=== PATIENT | female | born 1975 | race Caucasian/White ===

== ENCOUNTER 2017-11-04 20:40 | Emergency (ER) | payer BC ==
[2017-11-04] MEDS ORDERED: Acetaminophen/Codeine 30-300mg Tablet ONE (21:20)
--- NOTE | 2017-11-04 21:21 | RAD ---
RIGHT SHOULDER THREE VIEWS: 11/04/17 HISTORY: Right shoulder pain. FINDINGS: Acromioclavicular and glenohumeral alignment are maintained. No acute fracture or dislocation. IMPRESSION: No acute osseous abnormalities are demonstrated. POS: [facility]
== END 2017-11-04 21:40 | disposition home or self-care (01) ==
LOC: SCSER 20:40
DX: S43.421A Sprain of right rotator cuff capsule, initial encounter (principal); E11.9 Type 2 diabetes mellitus without complications; Z79.84 Long term (current) use of oral hypoglycemic drugs; Z79.899 Other long term (current) drug therapy; X58.XXXA Exposure to other specified factors, initial encounter

== ENCOUNTER 2018-03-25 19:02 | Emergency (ER) | payer BC | END 2018-03-25 19:21 | disposition home or self-care (01) | LOC: SCSER 19:02 | DX: T22.111A Burn of first degree of right forearm, initial encounter (principal); E11.9 Type 2 diabetes mellitus without complications; Z79.84 Long term (current) use of oral hypoglycemic drugs; X12.XXXA Contact with other hot fluids, initial encounter | CPT/HCPCS: 99283 ==

== ENCOUNTER 2018-11-03 19:52 | Emergency (ER) | payer BC ==
[~2018-11-03 19:52] MED LIST: Iopamidol 300 61% 100 ML VIAL FS ONE
[2018-11-03 20:32] LABS: #Eosinphils 0.1 thou/uL (0.0-0.7); #Lymphocytes 2.1 thou/uL (1.20-3.40); #Monocytes 0.4 thou/uL (0.11-0.59); %Basophils 0.5 % (0.0-1.0); %Eosinophils 1.6 % (0.0-10.0); %Lymphocytes 27.4 % (21.0-51.0); %Monocytes 4.6 % (0.0-10.0); %Neutrophils 65.9 % (42.0-75.0); Hemoglobin 13.3 g/dL (12.0-16.0); Mean Corpuscular HGB CONC 32.4 g/dL (32.0-36.0); Mean Corpuscular Hemoglobin 26.8 pg (27.0-31.0); Mean Corpuscular Volume 82.7 fL (78.0-98.0); Mean Platelet Volume 8.1 fL (7.4-10.4); Platelet Count 288 thou/uL (130-400); Red Blood Cell (RBC) Count 4.97 mill/uL (4.20-5.40); White Blood Cell (WBC) Count 7.6 thou/uL (4.8-10.8)
[2018-11-03 20:38] LABS: BHCG - Serum Negative (NEGATIVE); Pregs Control Background? CLEAR/WHITE (CLR/WHITE); Pregs Control Bar Appear? YES (CONTROL BAR)
[2018-11-03 20:49] LABS: ALT (SGPT) 20 U/L (8-55); AST (SGOT) 15 U/L (5-34); Albumin 3.7 g/dL (3.5-5.0); Alkaline Phosphatase 85 U/L (40-150); Anion Gap 14 mmol/L (10-20); BUN (Urea Nitrogen) 7 mg/dL (7.0-18.7); Bilirubin, Total 0.4 mg/dL (0.2-1.2); Calc. Creatinine Clearance 0 mL/min (70-130); Calcium 9.4 mg/dL (7.8-10.44); Carbon Dioxide 23 mmol/L (22-29); Chloride 106 mmol/L (98-107); Estimated GFR-MDRD 83; Globulin 3.1 g/dL (2.4-3.5); Glucose 179 mg/dL (70-105); Lipase 18 U/L (8-78); Potassium 3.6 mmol/L (3.5-5.1); Protein, Total 6.8 g/dL (6.0-8.3); Sodium 139 mmol/L (136-145)
--- NOTE | 2018-11-03 21:03 | RAD ---
XR Hip Lt 2-3 View History: Fall. Pain. Comparison: None. Findings: Coxa profunda deformity left hip, chronic. No acute fracture. Synovial herniation pits left femoral head/neck junction. Phleboliths in the pelvis. Impression: No acute osseous abnormality.
--- NOTE | 2018-11-03 21:18 | CT ---
CT Abdomen Pelvis Trauma History: Pain Comparison: None. Findings: Lung bases are clear. No pericardial effusion. Liver, gallbladder, spleen, pancreas, adrena l glands are unremarkable. Small fat-containing umbilical hernia as well as a fat and omentum-containing left periumbilical hernia. No free intraperitoneal gas or fluid. No solid organ injury within the abdomen or pelvis. Bilateral coxa profunda. SI joints are intact. No lumbar spine transverse process fracture. Visualized ribs are intact. Degenerative disc space disease at L5/S1 with posterior disc osteophyte complex causes moderate left neural foraminal narrowing. No acute lumbar spine fracture. Superficial soft tissues are unremarkable. Impression: No acute traumatic abnormality of the abdomen or pelvis.
[2018-11-03 21:27] LABS: Bilirubin Negative (Negative); Blood, Urine Negative (Negative); Clarity Turbid (Clear); Glucose, Urine (Dipstick) 100 mg/dL (Negative); Leukocyte Negative (Negative); Nitrite Negative (Negative); Protein, Urine (Dipstick) Negative (Neg-Trace); Urobilinogen 0.2 mg/dL (Less than 2)
== END 2018-11-03 22:06 | disposition home or self-care (01) ==
LOC: SCSER 19:52
DX: S39.012A Strain of muscle, fascia and tendon of lower back, initial encounter (principal); S70.02XA Contusion of left hip, initial encounter; R10.9 Unspecified abdominal pain; E11.9 Type 2 diabetes mellitus without complications; K21.9 Gastro-esophageal reflux disease without esophagitis; Z79.899 Other long term (current) drug therapy; Z79.84 Long term (current) use of oral hypoglycemic drugs; W19.XXXA Unspecified fall, initial encounter
CPT/HCPCS: 74177; 80053; 81003; 83690; 84703; 85025; 96360; Q9967